=== PATIENT | male | born 1965 | race Caucasian/White ===

== ENCOUNTER 2017-12-15 14:32 | Outpatient (CLI) | payer OTHER ==
--- NOTE | 2017-12-15 18:28 | Diagnostic Imaging Report ---
SHANTELL CORTEZ [facility] [address] [facility].[address] [address] Report Submission Date: Dec 15, 2017 3:19:37 PM INSTRUMENT CALIBRATOR Patient Study Name: MICHA HOFFMANN Date: Dec 15, 2017 2:44:26 PM INSTRUMENT CALIBRATOR Modality Type: CR Gender: M Description: CHEST : 63 Institution: [facility] Physician: SHANTELL CORTEZ Examination: PA and lateral chest. History: PERSISTENT COUGH X 3 WEEKS, OCCASIONAL SHORTNESS OF AIR, WHEEZING, PAIN (Hx) / PERSISTENT COUGH X 3 WEEKS (DICOM Hx) / PERSISTENT COUGH X 3 WEEKS ( Pt comments) Comparison exam: None provided. Findings: PA lateral chest demonstrate a normal cardiac and mediastinal silhouette. Tortuous aorta. No focal infiltrate. No blunting of the costophrenic margins. Osseous structures are appropriate for age. Impression: No acute pulmonary process. Electronically signed on Dec 15, 2017 3:19:37 PM INSTRUMENT CALIBRATOR by: Ashok BARNES
== END 2017-12-15 14:33 ==
LOC: RAD 14:32
PROVIDERS: ATTEND Nurse Practitioner Family
DX: R05 Cough (principal)
CPT/HCPCS: 71020